=== PATIENT | female | born 1950 | race Caucasian/White ===

== ENCOUNTER → 2022-07-18 15:00 | Outpatient (CLI) | payer MEDICARE, OTHER, SELFPAY ==
--- NOTE | 2022-07-18 | DI.MG.S_ITS ---
BILATERAL DIGITAL SCREENING MAMMOGRAM 3D/2D WITH CAD: 07/18/2022 CLINICAL: Baseline exam. Routine screening. Family history of breast cancer. No prior exams were available for comparison. Both breasts are heterogeneously dense, which may obscure small masses (category c / 51-75% glandular tissue). Reporting delay due to awaiting outside images for comparison. Current study was also evaluated with a Computer Aided Detection (CAD) system. There is a possible lymph node in the right breast at 11 o'clock posterior depth. There also is an asymmetry in the right breast posterior depth central to the nipple seen on the craniocaudal view only. There is a possible lymph node in the left breast at 5 o'clock middle depth. No other significant masses or calcifications are seen in either breast. IMPRESSION: INCOMPLETE: NEEDS ADDITIONAL IMAGING EVALUATION The possible lymph node in the right breast at 11 o'clock posterior depth is indeterminate. Additional views with possible ultrasound are recommended. The asymmetry in the right breast posterior depth central to the nipple seen on the craniocaudal view only is indeterminate. Additional views with possible ultrasound are recommended. The possible lymph node in the left breast at 5 o'clock middle depth is indeterminate. Additional views with possible ultrasound are recommended. Based on the Tyrer Cuzick model (a risk assessment model) the patient's lifetime risk is 14.1% and her 10 year risk is 10.6%. According to the ACR, ACS, and NCCN guidelines, an annual breast MRI exam along with mammogram is recommended if the patient's lifetime risk is 20% or greater. This exam was interpreted at Station ID: [id number]. NOTE: For mammograms, a report in lay terms will be sent to the patient. Approximately 15% of breast malignancies will not be visualized mammographically. In the management of a palpable breast mass, a negative mammogram must not discourage biopsy of a clinically suspicious lesion. Electronically Signed By: Bala Lopes M.D. lc/:07/19/2022 08:04:18 letter sent: Additional Imaging Needed ACR BI-RADS Category 0: Incomplete 3340F
--- NOTE | 2022-07-18 | DI.RAD.S_ITS ---
Bone Density Report Name: SALMA JOHNSON Age: 71 Sex: Female Ethnicity: White Date of : 1950 Indication: postmenopausal; screening for osteoporosis; Referring Provider: NAOMI JAQUEZ Study: Bone densitometry was performed. Exam Date: July 18, 2022 Accession number: [id number] Bone Density: Region BMD T-score Z-score Classification AP Spine(L1-L4) 1.072 0.2 2.5 Normal Femoral Neck (Left) 0.825 -0.2 1.7 Normal Total Hip (Left) 0.918 -0.2 1.5 Normal Femoral Neck (Right) 0.808 -0.4 1.6 Normal Total Hip (Right) 0.972 0.2 1.9 Normal Total Hip Mean 0.945 0.0 1.7 Normal World Health Organization criteria for BMD impression classify patients as: Normal (T-score at or above -1.0), Osteopenia (T-score between -1.0 and -2.5), or Osteoporosis (T-score at or below -2.5). 10-year Fracture Risk: FRAX not reported because: All T-scores for Spine Total, Hip Total, Femoral Neck at or above -1.0 Impression: The patient has normal bone mass. Discussion: BONE DENSITY IS ABOVE THE MINIMUM DESIRABLE LEVEL AT ALL SKELETAL SITES TESTED. This patient's bone mineral density is above the minimum desirable level (T-score -1.0 or better) at all sites measured. The patient should follow a healthful lifestyle (good nutrition with adequate calcium and vitamin D, and appropriate weight-bearing exercise). Follow-Up: Consider repeating this study in 5 years or sooner if there is some new clinical indication. Reported by: KEIKO MEDINA M.D. on 07/18/2022 3:52:00 PM.
== END ==
PROVIDERS: PCP Family Medicine; Referring Provider Family Medicine; Visit Provider Family Medicine
DX: Z80.3 Family history of malignant neoplasm of breast (principal); Z12.31 Encounter for screening mammogram for malignant neoplasm of breast; Z13.820 Encounter for screening for osteoporosis; Z78.0 Asymptomatic menopausal state
CPT/HCPCS: 77063; 77067; 77080

== ENCOUNTER → 2022-07-28 11:23 | Outpatient (CLI) | payer MEDICARE, OTHER, SELFPAY ==
--- NOTE | 2022-07-28 | DI.MG.S_ITS ---
BILATERAL DIGITAL DIAGNOSTIC MAMMOGRAM 3D/2D WITH ADDITIONAL VIEWS: 07/28/2022 CLINICAL: Additional evaluation requested from prior study. Comparison is made to exam dated: 07/18/2022 mammogram - [facility]. Both breasts are heterogeneously dense, which may obscure small masses (category c / 51-75% glandular tissue). There is a benign lymph node in the right breast at 11 o'clock posterior depth. This is less prominent. There also is a benign oval lymph node in the right breast posterior depth central to the nipple seen on the craniocaudal view only. There is a stable benign fat containing lymph node in the left breast at 5 o'clock middle depth. No other significant masses or calcifications are seen in either breast. IMPRESSION: BENIGN There is no mammographic evidence of malignancy. Small bilateral intramammary lymph nodes are benign. A 1 year screening mammogram is recommended. Exam findings were conveyed to the patient. Based on the Tyrer Cuzick model (a risk assessment model) the patient's lifetime risk is 14.1% and her 10 year risk is 10.6%. According to the ACR, ACS, and NCCN guidelines, an annual breast MRI exam along with mammogram is recommended if the patient's lifetime risk is 20% or greater. This exam was interpreted at Station ID: [id number]. NOTE: For mammograms, a report in lay terms will be sent to the patient. Approximately 15% of breast malignancies will not be visualized mammographically. In the management of a palpable breast mass, a negative mammogram must not discourage biopsy of a clinically suspicious lesion. Electronically Signed By: Jensen Herrera M.D. [facility] [place]:07/28/2022 12:43:55 letter sent: Normal Exam ACR BI-RADS Category 2: Benign Finding(s) 3342F
== END ==
PROVIDERS: PCP Family Medicine; Referring Provider Family Medicine; Visit Provider Family Medicine
DX: R92.8 Other abnormal and inconclusive findings on diagnostic imaging of breast (principal)
CPT/HCPCS: 77066; G0279

== ENCOUNTER → 2023-06-22 13:31 | Outpatient (CLI) | payer MEDICARE, OTHER, SELFPAY ==
--- NOTE | 2023-06-22 13:33 | DI.ECHO.S_ITS ---
[facility]+ [facility] : : [address] : : [place] : : [phone] : : Phone: [phone] Echocardiogram Report + + :Name: SALMA JOHNSON Study Date: 06/22/2023 Height: 71 in : :Hospital ReadingLocation: Weight: 240 lb : : Gender: Female BSA: 2.3 m2 : :: 1950 Age: 72 yrs BP: 130/79 mmHg: :Reason For Study: CHEST PAIN, MURMUR : :Ordering Physician: MORENA MARLOW Performed By: Shwetha Butt : :Referring: MORENA MARLOW : + + Interpretation Summary 1. The left ventricular contractility is normal. Estimated ejection fraction is greater than 55% with no segmental wall motion abnormalities. No LVH is noted. Grade 1 diastolic dysfunction present. 2. The right ventricular contractility is normal. 3. All cardiac chambers are of normal size. 4. No significant valvular abnormalities are appreciated. 5. No obvious intracardiac shunts noted. 6. No obvious intracardiac masses nor thrombi present. 7. No hemodynamically significant pericardial effusion present. Conclusion: Normal biventricular systolic function with mild diastolic dysfunction and no significant structural abnormalities. Procedure: A two-dimensional transthoracic echocardiogram with color flow and Doppler was performed. The study quality was technically difficult. There is no prior echocardiogram noted for this patient. The patient was in sinus bradycardia with heart rates between 55-63 bpm during the exam. Left Ventricle: The left ventricle is normal in size and wall thickness. The ejection fraction is estimated to be 60-65%. Right Ventricle: The right ventricle is normal in size and function. Atria: The left atrial size is normal. Right atrial size is normal. There is no Doppler evidence for an interatrial shunt. Mitral Valve: The mitral valve is normal in structure and function. There is trace mitral regurgitation. Aortic Valve: The aortic valve is trileaflet. The aortic valve opens well. There is no aortic valve stenosis. No aortic regurgitation is present. Tricuspid Valve: The tricuspid valve is normal in structure and function. No tricuspid regurgitation. Pulmonary artery pressures cannot be estimated because of the lack of a measurable TR jet velocity. Pulmonic Valve: The pulmonic valve leaflets are thin and pliable; valve motion is normal. There is trace pulmonic regurgitation. Great Vessels: The aortic root is normal size. The dimensions of the ascending aorta are normal. The IVC is of normal diameter and collapses greater than 50% with a sniff. This suggests a low right atrial pressure of 3 mm Hg. Pericardium/ Pleura There is no pericardial effusion. There is no pleural effusion. MMode/2D Measurements & Calculations LVIDd: 4.9 cm LVOT diam: 2.1 cm LVIDs: 3.3 cm Ao root diam: 3.2 cm FS: 33.1 % asc Aorta Diam: 3.6 cm IVSd: 1.2 cm Ao Arch Diam (Prox Trans): 3.0 cm LVPWd: 0.90 cm LV thomas. diameter/BSA (cm/m^2): 2.2 LV sys. diameter/BSA (cm/m^2): 1.4 LA A2 area: 18.2 cm2 RA long axis: 4.9 cm LA A4 area: 16.4 cm2 RA area: 14.6 cm2 LA length (vol): 5.2 cm RA vol: 36.6 ml LA vol: 48.7 ml RA : 16.0 ml/m2 LA vol index: 21.4 ml/m2 IVC diam: 0.78 cm RVD1 (basal): 3.7 cm RVD2 (mid): 3.1 cm TAPSE: 2.3 cm Doppler Measurements & Calculations Ao V2 max: 156.6 cm/sec LVOT Max Nolberto: 105.6 cm/sec Ao V2 mean: 106.5 cm/sec LV V1 max P.5 mmHg Ao max P.8 mmHg LV V1 VTI: 24.4 cm Ao mean P.1 mmHg JULI(I,D): 2.7 cm2 Ao V2 VTI: 30.8 cm JULI(V,D): 2.3 cm2 sev ratio: 0.79 JULI indexed to BSA (cm^2/m^2): 1.2 MV E max nolberto: 55.0 cm/sec PA V2 max: 86.1 cm/sec MV A max nolberto: 73.1 cm/sec PA V2 mean: 64.4 cm/sec MV E/A: 0.75 PA mean P.8 mmHg Med Peak E' Nolberto: 3.5 cm/sec PA pr(Accel): 20.8 mmHg E/E' med: 15.7 Lat Peak E' Nolberto: 6.0 cm/sec E/E' lat: 9.1 E/e' average: 12.4 MV dec time: 0.36 sec SV(LVOT): 82.9 ml Reading Physician:
--- NOTE | 2023-06-22 13:34 | DI.NM.S_ITS ---
PROCEDURE: NM EXERCISE TREADMILL NON NUC COMPARISON: None. INDICATIONS: Chest pain,Cardiac murmur, unspecified FINDINGS: the patient exercised for 4 minutes and 42 second [id number]% of maximum predicted heart rate. Appropriate BP response to exercise (resting BP 140/80mmHg, max BP 190/100mmHg). Mildly reduced exercise capacity (7.0METs, ANNY +14%). Frequent PACs during exercise and recovery. No AF, no VT, and no SVT present. No diagnostic ST changes and no angina during exercise or recovery. IMPRESSION: Low risk, normal treadmill ECG only stress from inducible ischemia standpoint. Mildly reduced exercise capacity (ANNY +14%). Frequent PACs during exercise and recovery. Dictated by: Jose Jessica MD on 06/22/2023 at 16:37 Approved by: Jose Jessica MD on 06/22/2023 at 16:40
== END ==
LOC: ECHO 13:33
PROVIDERS: PCP Family Medicine; Referring Provider Internal Medicine; Visit Provider Internal Medicine
DX: R01.1 Cardiac murmur, unspecified (principal); I50.30 Unspecified diastolic (congestive) heart failure; R07.9 Chest pain, unspecified
CPT/HCPCS: 93017; 93306

== ENCOUNTER → 2023-08-07 12:23 | Outpatient (CLI) | payer MEDICARE, OTHER, SELFPAY ==
--- NOTE | 2023-08-07 12:24 | DI.MG.S_ITS ---
BILATERAL DIGITAL SCREENING MAMMOGRAM 3D/2D WITH CAD: 08/07/2023 CLINICAL: Routine screening. Family history of breast cancer. Comparison is made to exam dated: 07/18/2022 mammogram - [facility]. Both breasts are heterogeneously dense, which may obscure small masses (category c / 51-75% glandular tissue). Current study was also evaluated with a Computer Aided Detection (CAD) system. No significant masses, calcifications, or other findings are seen in either breast. There has been no significant interval change. IMPRESSION: NEGATIVE There is no mammographic evidence of malignancy. A 1 year screening mammogram is recommended. Based on the Tyrer Cuzick model (a risk assessment model) the patient's lifetime risk is 13.3% and her 10 year risk is 10.9%. According to the ACR, ACS, and NCCN guidelines, an annual breast MRI exam along with mammogram is recommended if the patient's lifetime risk is 20% or greater. This exam was interpreted at Station ID: [id number]. NOTE: For mammograms, a report in lay terms will be sent to the patient. Approximately 15% of breast malignancies will not be visualized mammographically. In the management of a palpable breast mass, a negative mammogram must not discourage biopsy of a clinically suspicious lesion. Electronically Signed By: Bala eden/cara:08/07/2023 13:23:36 letter sent: Normal Exam ACR BI-RADS Category 1: Negative 3341F
== END ==
PROVIDERS: PCP Family Medicine; Referring Provider Family Medicine; Visit Provider Family Medicine
DX: Z12.31 Encounter for screening mammogram for malignant neoplasm of breast (principal); Z80.3 Family history of malignant neoplasm of breast; R92.333 Mammographic heterogeneous density, bilateral breasts
CPT/HCPCS: 77063; 77067

== ENCOUNTER → 2024-08-07 12:40 | Outpatient (CLI) | payer MEDICARE, OTHER, SELFPAY ==
--- NOTE | 2024-08-07 12:42 | DI.MG.S_ITS ---
MM screening mammo BI: 08/07/2024. BI-RADS: 1 CLINICAL: 73-year old female for bilateral screening mammogram. Tyrer-Cuzick lifetime risk of 12.7%. Current reported family history of breast cancer: mother. PRIOR EXAMS 08/07/2023, 07/28/2022, 07/18/2022. MAMMOGRAPHY TECHNIQUE: 2D and 3D (tomosynthesis) digital mammographic views obtained, with additional images as needed for full coverage. Current study was also evaluated with a Computer Aided Detection (CAD) system. DENSITY C. The breasts are heterogeneously dense, which may obscure small masses. MAMMOGRAPHY FINDINGS Bilateral: No suspicious mass, asymmetry, microcalcification, or other abnormality seen. IMPRESSION: * No evidence of malignancy. RECOMMENDATIONS Bilateral * Annual screening mammography. OVERALL ASSESSMENT CATEGORY BI-RADS-1: Negative. The [employer] recommends annual screening mammography beginning at age 40 for women with average risk of breast cancer. ELECTRONICALLY SIGNED: Asif Pitts M.D. on 08/07/2024 at 04:29:30 PM PT Interpreting Station ID: [id number]
== END ==
LOC: MAMMO 12:42
PROVIDERS: PCP Family Medicine; Referring Provider Family Medicine; Visit Provider Family Medicine
DX: Z12.31 Encounter for screening mammogram for malignant neoplasm of breast (principal); R92.333 Mammographic heterogeneous density, bilateral breasts; Z80.3 Family history of malignant neoplasm of breast
CPT/HCPCS: 77063; 77067